=== PATIENT | male | born 1965 | race Caucasian/White ===

== ENCOUNTER 2016-09-09 14:32 | Emergency (ER) | payer MEDICAID ==
[~2016-09-09 14:32] MED LIST: AMLODIPINE BES2.5 M1 PO; AMLODIPINE5 M1 PO; ASPIR 8181 MG PO; ATENOLOL100 MG PO; ATIVAN1 MG PO; CLONIDINE HCL0.3 MG PO; GLIPIZIDE10 MG PO; HYDROCHLOROTHIA25 MG PO; LANTUS SOLOS100 U/M1 SQ; LISINOPRIL40 MG PO; METFORMIN1000 M1 PO; [UNRECOGNIZED DRUG - REMARK]
[2016-09-09 17:24] VITALS: BP 188/107
== END 2016-09-09 17:24 | disposition home or self-care (01) ==
LOC: ED 14:32
DX: S29.012A Strain of muscle and tendon of back wall of thorax, initial encounter (principal); X58.XXXA Exposure to other specified factors, initial encounter; Y93.89 Activity, other specified; Y92.89 Other specified places as the place of occurrence of the external cause; Y99.8 Other external cause status; E11.9 Type 2 diabetes mellitus without complications; I10 Essential (primary) hypertension; G51.0 Bell's palsy

== ENCOUNTER 2017-05-04 17:36 | Emergency (ER) | payer MEDICAID ==
[~2017-05-04] VITALS: Ht 167.6 cm; Wt 88.6 kg
[2017-05-04 17:40] VITALS: Ht 167.6 cm; Wt 88.6 kg
[2017-05-04 22:43] VITALS: BP 158/89
== END 2017-05-04 21:59 | disposition home or self-care (01) ==
LOC: ED 17:36
DX: L03.114 Cellulitis of left upper limb (principal); I10 Essential (primary) hypertension; E11.9 Type 2 diabetes mellitus without complications